=== PATIENT | female | born 1980 | race Caucasian/White ===

== ENCOUNTER 2016-11-28 16:13 | Emergency (ER) | payer MEDICAID ==
[~2016-11-28] VITALS: Ht 152.4 cm; Wt 78.0 kg
[~2016-11-28 16:13] MED LIST: AMLO2.5T2 PO; AMLO2.5T78 PO; NAPR-688 PO
[2016-11-28 16:16] VITALS: Ht 152.4 cm; Wt 78.0 kg
[2016-11-28] MEDS ORDERED: ONDANSETRON (ODT) 4 MG TAB ODT STA (17:37)
[2016-11-28] MEDS ORDERED: KETOROLAC 60 MG INJ IM STA (17:37)
[2016-11-28] MEDS ORDERED: IBUP-1542 PO (17:54)
[2016-11-28] MEDS ORDERED: ONDA4TAB14 PO (17:59)
--- NOTE | 2016-11-28 18:02 | ERD ---
ER Documentation Chief Complaint Date/Time DATE: 11/28/16 TIME: 18:00 Chief Complaint CULVER TODAY HPI 36-year-old female patient with no significant past medical history presents to the ED complaining of a headache that started earlier today. Reports Reports that it is achy and rates it a 6 out of 10. States that her last menses was on November 16, 2016. Reports that she did have a history of hypertension but no high blood pressure noted here in the ED. Denies taking any medications. Denies any chest pain, shortness of breath, cough, fever, chills, abdominal pain, vomiting. Denies any sick contacts. ROS All systems reviewed and are negative except as per history of present illness. Medications Home Meds Active Scripts Ondansetron (Ondansetron Odt) 4 Mg Tab.rapdis, 4 MG PO Q6H Y for NAUSEA AND/OR VOMITING, #10 TAB Prov:JUAN PABLO SAWANT PA-C 11/28/16 Ibuprofen* (Motrin*) 600 Mg Tab, 600 MG PO Q6, #30 TAB Prov:JUAN PABLO SAWANT PA-C 11/28/16 Amlodipine Besylate* (Amlodipine Besylate*) 2.5 Mg Tablet, 2.5 MG PO DAILY, #14 TAB Prov:FLORENCIO CORTES DO 08/20/15 Naproxen* (Naproxen*) 500 Mg Tablet, 500 MG PO BID Y for PAIN, #20 TAB Prov:FLORENCIO CORTES DO 08/20/15 Reported Medications Amlodipine Besylate* (Norvasc*) 2.5 Mg Tablet, 2.5 MG PO DAILY, TAB 08/20/15 Allergies Allergies: Coded Allergies: No Known Allergy (Unverified , 11/28/14) PMhx/Soc History of Surgery: Yes (C- SECTION) Anesthesia Reaction: No Hx Neurological Disorder: No Hx Respiratory Disorders: No Hx Cardiac Disorders: Yes (HTN) Hx Psychiatric Problems: No Hx Miscellaneous Medical Probl: No Hx Alcohol Use: No Hx Substance Use: No Hx Tobacco Use: No Physical Exam Vitals Vital Signs Date Time Temp Pulse Resp B/P Pulse Ox O2 Delivery O2 Flow Rate FiO2 11/28/16 16:16 98.1 90 18 141/95 99 Physical Exam Const: [id number], well-nourished. In no acute distress. Head: Atraumatic, normocephalic. Slight tenderness to palpation of the frontal sinuses. Eyes: Normal Conjunctiva without injection. No purulent discharge. PERRLA. EOMI ENT: Normal external ear. Ear canal without erythema. Tympanic membrane pearly hernandez without effusion or bulging. Nasal canal clear with normal turbinates. Moist oropharynx without tonsillar exudates. Non-erythematous pharynx. Uvula midline. No drooling. No trismus. Neck: No cervical midline tenderness. Full range of motion. No meningismus. No cervical lymphadenopathy. No JVD. Resp: Clear to auscultation bilaterally. No wheezing, rhonchi, rales, or crackles. No accessory muscle use. No retractions. Cardio: Regular rate and rhythm. No murmurs, rubs or gallops. Abd: Soft, non tender, non distended. Normal bowel sounds. No palpable masses. No rebound tenderness. No guarding. Negative McBurney's Point. Negative Montano's Sign. Skin: Normal skin turgor. No petechiae or rashes Back: No midline tenderness. No CVA tenderness. Ext: No cyanosis, or edema. Distal pulses intact bilaterally. Neur: Awake and alert. Normal gait. Normal coordination. Cranial Nerves II- VII intact. Normal finger to nose. Muscle strength 5/5. Sensation intact. Psych: Normal Mood and Affect Results 24 hrs Current Medications Medications (Trade) Dose Ordered Sig/Amandeep Route PRN Reason Start Time Stop Time Status Last Admin Dose Admin Ketorolac Tromethamine (Toradol) 60 mg ONCE STAT IM 11/28/16 17:37 11/28/16 17:38 DC 11/28/16 18:22 Ondansetron HCl (Zofran Odt) 4 mg ONCE STAT ODT 11/28/16 17:37 11/28/16 17:38 DC 11/28/16 18:21 Procedures/MDM 36-year-old female patient with no significant past medical history presents to the ED complaining of a headache that started earlier today. Patient is afebrile and nontoxic-appearing. Patient has normal vital signs. Negative . Patient was treated here in the ED with Toradol and Zofran. Patient symptoms have improved. Patient likely has a sinus headache. There is low suspicion for intracranial bleed, cluster headache, subarachnoid hemorrhage , meningitis, TIA, stroke, seizures, epidural hematoma, subdural hematoma, or other emergent conditions. Discharge medications: Ibuprofen, Zofran Follow up with primary care physician in 1-2 days for further evaluation if symptoms do not improve. Instructed patient to return to the ED sooner for any worsening symptoms. Patient's questions were answered. Patient understood and agreed with discharge plan. Patient discharged stable. Departure Diagnosis: Primary Impression: Sinus pain Additional Impression: Headache Headache type: unspecified Headache chronicity pattern: unspecified pattern Intractability: not intractable Qualified Code: R51 - Nonintractable headache, unspecified chronicity pattern, unspecified headache type Condition: Stable Patient Instructions: Tension Headaches, Sinus Headaches, Self-Care for Headaches Referrals: [facility] YOU HAVE RECEIVED A MEDICAL SCREENING EXAM AND THE RESULTS INDICATE THAT YOU DO NOT HAVE A CONDITION THAT REQUIRES URGENT TREATMENT IN THE EMERGENCY DEPARTMENT. FURTHER EVALUATION AND TREATMENT OF YOUR CONDITION CAN WAIT UNTIL YOU ARE SEEN IN YOUR DOCTORS OFFICE WITHIN THE NEXT 1-2 DAYS. IT IS YOUR RESPONSIBILITY TO MAKE AN APPOINTMENT FOR FOLOW-UP CARE. IF YOU HAVE A PRIMARY DOCTOR --you should call your primary doctor and schedule an appointment IF YOU DO NOT HAVE A PRIMARY DOCTOR YOU CAN CALL OUR PHYSICIAN REFERRAL HOTLINE AT IF YOU CAN NOT AFFORD TO SEE A PHYSICIAN YOU CAN CHOSE FROM THE FOLLOWING [facility] [address] [facility]. [facility] [address] [facility]. [facility] [address] [facility] [facility] [address] [facility]. [facility] [address] [facility]. [facility]. [address] [facility]. [facility] YOU HAVE RECEIVED A MEDICAL SCREENING EXAM AND THE RESULTS INDICATE THAT YOU DO NOT HAVE A CONDITION THAT REQUIRES URGENT TREATMENT IN THE EMERGENCY DEPARTMENT. FURTHER EVALUATION AND TREATMENT OF YOUR CONDITION CAN WAIT UNTIL YOU ARE SEEN IN YOUR DOCTORS OFFICE WITHIN THE NEXT 1-2 DAYS. IT IS YOUR RESPONSIBILITY TO MAKE AN APPOINTMENT FOR FOLOW-UP CARE. IF YOU HAVE A PRIMARY DOCTOR --you should call your primary doctor and schedule and appointment IF YOU DO NOT HAVE A PRIMARY DOCTOR YOU CAN CALL OUR PHYSICIAN REFERRAL HOTLINE AT . IF YOU CAN NOT AFFORD TO SEE A PHYSICIAN YOU CAN CHOSE FROM THE FOLLOWING [facility] INSTITUTIONS: [facility] [address] [place] [address] [facility] [address] [place] [address] [facility] [address] [place] [address] [facility] URGENT CARE/SPECIALTIES Additional Instructions: Llame al doctor MAANA y олег brigida CLARISA PARA DENTRO DE 1-2 SAUCEDO.Dgale a la secretaria que nosotros le instruimos hacer esta clarisa.Avise o llame si navarro condicin se empeora antes de la clarisa. Regresa aqui si peor o no mejor. JUAN PABLO SAWANT PA-C Nov 28, 2016 18:02
== END 2016-11-28 18:55 | disposition home or self-care (01) ==
LOC: FTE 16:13
DX: J34.89 Other specified disorders of nose and nasal sinuses (principal); I10 Essential (primary) hypertension
CPT/HCPCS: 96372; J1885; Z7502; Z7610

== ENCOUNTER 2017-07-16 02:48 | Emergency (ER) | END 2017-07-16 05:13 | disposition home or self-care (01) ==

== ENCOUNTER 2018-06-22 07:06 | Emergency (ER) | payer MEDICAID ==
[~2018-06-22] VITALS: Ht 160 cm; Wt 66.8 kg
[~2018-06-22 07:06] MED LIST changes: +ACET500C5 PO; +CIPR500T4 PO; +IBUP-1542 PO; +ONDA4TAB14 PO; +PHEN-538 PO
[2018-06-22 07:10] VITALS: BP 155/83; PULSE 72; RESP 18; Ht 160 cm; Wt 66.8 kg
--- NOTE | 2018-06-22 07:36 | ERD ---
ER Documentation Chief Complaint Chief Complaint lower back pain painful urination x1 day HPI 38-year-old female presents with dysuria and increased urinary frequency for 2 days. No hematuria. ROS All systems reviewed and are negative except as per history of present illness. Medications Home Meds Active Scripts Phenazopyridine Hcl* (Pyridium*) 200 Mg Tab, 200 MG PO TID PRN for URINARY PAIN, #6 TAB Prov:AGAPITO PAREDES PA-C 06/22/18 Cephalexin* (Keflex*) 500 Mg Capsule, 500 MG PO TID for 5 Days, CAP Prov:AGAPITO PAREDES PA-C 06/22/18 Ondansetron (Ondansetron Odt) 4 Mg Tab.rapdis, 4 MG PO Q6H PRN for NAUSEA AND/OR VOMITING, #20 TAB Prov:JADA GARCIA NP 07/16/17 Acetaminophen* (Tylophen*) 500 Mg Capsule, 1 CAP PO Q6H PRN for PAIN AND OR ELEVATED TEMP, #20 CAP Prov:JADA GARCIA NP 07/16/17 Ibuprofen* (Motrin*) 600 Mg Tab, 600 MG PO Q6H PRN for PAIN AND OR ELEVATED TEMP, #30 TAB Prov:JADA GARCIA NP 07/16/17 Phenazopyridine Hcl* (Pyridium*) 200 Mg Tab, 200 MG PO TID PRN for URINARY PAIN, #6 TAB Prov:JADA GARCIA NP 07/16/17 Ciprofloxacin Hcl* (Ciprofloxacin Hcl*) 500 Mg Tablet, 500 MG PO BID for 10 Days, TAB Prov:JADA GARCIA NP 07/16/17 Ondansetron (Ondansetron Odt) 4 Mg Tab.rapdis, 4 MG PO Q6H PRN for NAUSEA AND/OR VOMITING, #10 TAB Prov:JUAN PABLO SAWANT PA-C 11/28/16 Ibuprofen* (Motrin*) 600 Mg Tab, 600 MG PO Q6, #30 TAB Prov:JUAN PABLO SAWANT PA-C 11/28/16 Amlodipine Besylate* (Amlodipine Besylate*) 2.5 Mg Tablet, 2.5 MG PO DAILY, #14 TAB Prov:FLORENCIO CORTES DO 08/20/15 Naproxen* (Naproxen*) 500 Mg Tablet, 500 MG PO BID PRN for PAIN, #20 TAB Prov:FLORENCIO CORTES DO 08/20/15 Reported Medications Amlodipine Besylate* (Norvasc*) 2.5 Mg Tablet, 2.5 MG PO DAILY, TAB 08/20/15 Allergies Allergies: Coded Allergies: No Known Allergy (Unverified , 11/28/14) PMhx/Soc History of Surgery: Yes (C- SECTION) Anesthesia Reaction: No Hx Neurological Disorder: No Hx Respiratory Disorders: No Hx Cardiac Disorders: Yes (HTN) Hx Psychiatric Problems: No Hx Miscellaneous Medical Probl: No Hx Alcohol Use: No Hx Substance Use: No Hx Tobacco Use: No FmHx Family History: No diabetes Physical Exam Vitals Vital Signs Date Temp Pulse Resp B/P (MAP) Pulse Ox O2 O2 Flow FiO2 Time Delivery Rate 06/22/18 97.8 72 18 155/83 99 07:10 (107) Physical Exam INITIAL VITAL SIGNS: Reviewed by me GENERAL: Awake, alert and oriented x 4, well appearing, nontoxic, speaking in full sentences. No acute distress HEAD: Atraumatic NECK: Supple. No masses. Full range of motion. No meningismus. No midline tenderness. EYES: EOMI. PERRL. RESPIRATORY: Clear to auscultation bilaterally. Symmetric chest wall rise. No wheezing or rales. No accessory muscle use. CV: Regular rate and rhythm. No murmurs, rubs, or gallops. ABDOMEN: Soft, non-distended. Nontender. Negative [place]. Negative McBurneys point tenderness. No CVA tenderness bilaterally. No guarding. No rebound. Results 24 hrs Laboratory Tests Test 06/22/18 07:27 06/22/18 07:29 Bedside Urine pH (LAB) 5.5 Bedside Urine Protein (LAB) 2+ Bedside Urine Glucose (UA) Negative Bedside Urine Ketones (LAB) Negative Bedside Urine Blood Trace-lysed Bedside Urine Nitrite (LAB) Positive Bedside Urine Leukocyte Esterase (L 1+ POC Beta HCG, Qualitative NEGATIVE Procedures/MDM Patient presents with urinary tract infection which was confirmed on urine dip. She is not . Her urine sent for culture. Discharged with Keflex and Pyridium. I doubt she has pyelonephritis or kidney stones. Patient counseled regarding my diagnostic impression and care plan. Prior to discharge all questions answered. Pt agrees with treatment plan and understands strict return precautions. Pt is instructed to follow up with primary care provider within 24- 48 hours. Precautionary instructions provided including instructions to return to the ER if not improving or for any worsening or changing symptoms or concerns. Departure Diagnosis: Primary Impression: Cystitis Condition: Stable AGAPITO PAREDES PA-C Jun 22, 2018 07:36
[2018-06-22] MEDS ORDERED: CEPH-443 PO (07:38)
[2018-06-22] MEDS ORDERED: PHEN-538 PO (07:38)
== END 2018-06-22 07:49 | disposition home or self-care (01) ==
LOC: FTE 07:06
DX: N30.90 Cystitis, unspecified without hematuria (principal); I10 Essential (primary) hypertension
CPT/HCPCS: 81003; 81025; 87086; Z7502; 99283